=== PATIENT | male | born 1970 | race Caucasian/White ===

== ENCOUNTER 2018-12-10 02:14 | Inpatient (IN) | payer OTHER, MEDICAID ==
[~2018-12-10] VITALS: Ht 172.7 cm; Wt 79.3 kg
[2018-12-10] MEDS ORDERED: SODIUM CHLORIDE 0.9% 1,000 ML IV ONE (03:47)
[2018-12-10 04:05] LABS: BASOPHILS % 1.2 % (0.0-2.0); EOSINOPHILS % 2.9 % (0.0-5.0); HEMATOCRIT. 42.9 % (42.0-52.0); HEMOGLOBIN. 14.8 g/dL (14.0-18.0); LYMPHOCYTES % 28.2 % (20.0-50.0); MEAN CORPUSCULAR HEMOGLOBIN 30.2 pg (28.0-32.0); MEAN CORPUSCULAR VOLUME 87.6 fL (80.0-94.0); MONOCYTES % 10.4 % (2.0-8.0); NEUTROPHILS % 57.3 % (40.0-76.0); PLATELET 256 x1000/uL (130-400); RED CELL DISTRIBUTION WIDTH 13.6 % (11.6-14.6)
[2018-12-10 04:07] LABS: CHLORIDE 108 mEq/L (98-107)
[2018-12-10 04:11] LABS: ETHANOL BLOOD < 10 mg/dL
[2018-12-10] MEDS ORDERED: MORPHINE SULFATE 4 MG/ML CPJ (NOT FOR IM USE) IV ONE (04:45)
[2018-12-10] MEDS: SODIUM CHLORIDE 0.9% 1,000 ML IV SCH ×2 (07:59→21:58)
[2018-12-10] MEDS ORDERED: NITROGLYCERIN 0.4MG TABLET SL SL PRN (08:00)
[2018-12-10] MEDS ORDERED: ZOLPIDEM TARTRATE 5MG TABLET PO PRN (08:00)
[2018-12-10] MEDS ORDERED: IPRATROPIUM/ALBUTEROL 0.5-3(2.5)MG/3ML NEB NEB PRN (08:00)
[2018-12-10] MEDS ORDERED: KETOROLAC 15MG/ML VIAL IV PRN (08:00)
[2018-12-10] MEDS ORDERED: ACETAMINOPHEN 325MG TABLET PO PRN (08:00)
[2018-12-10] MEDS ORDERED: GUAIFENESIN 200MG/10ML SUGAR FREE UDC PO PRN (08:00)
[2018-12-10] MEDS ORDERED: CLONIDINE 0.1MG TABLET PO PRN (08:00)
[2018-12-10] MEDS ORDERED: ONDANSETRON HCL 4MG/2ML INJ IV PRN (08:00)
[2018-12-10] MEDS ORDERED: DOCUSATE SODIUM 100MG CAPSULE PO PRN (08:00)
[2018-12-10 09:00] VITALS: BP 124/87
[2018-12-10 09:14] LABS: FOLIC ACID (FOLATE) SERUM 19.8 ng/mL (>5.38)
[2018-12-10] MEDS ORDERED: IMIT50 MT (11:29)
[2018-12-10] MEDS ORDERED: SUMATRIPTAN SUCCINATE 25MG TABLET PO ONE (11:30)
[2018-12-10] MEDS: ASPIRIN 81MG EC TABLET PO SCH (11:45)
[2018-12-10] MEDS: FAMOTIDINE 20MG TABLET PO SCH ×2 (11:46→21:56)
[2018-12-10] MEDS: ENOXAPARIN 40MG/0.4ML SYR SUBCUT SCH (11:47)
[2018-12-10 12:00] VITALS: BP 115/50
[2018-12-10] MEDS ORDERED: SUMATRIPTAN SUCCINATE 25MG TABLET PO PRN ×2 (12:00→14:30)
[2018-12-10] MEDS ORDERED: IMIPRAMINE HCL 25MG TABLET PO PRN (13:15)
[2018-12-10 16:02] LABS: CREATINE KINASE 238 IU/L (39-308)
[2018-12-10 16:04] LABS: CREATINE KINASE MB FRACTION 3.6 ng/mL (0.5-3.6)
[2018-12-10 20:00] VITALS: BP 117/82
[2018-12-11] VITALS: BP 106/73
[2018-12-11 00:51] LABS: CREATINE KINASE 230 IU/L (39-308)
[2018-12-11 01:02] LABS: CREATINE KINASE MB FRACTION 3.1 ng/mL (0.5-3.6)
[2018-12-11 04:00] VITALS: BP 112/70
[2018-12-11 08:00] VITALS: BP 121/80
[2018-12-11] MEDS: ASPIRIN 81MG EC TABLET PO SCH (09:18)
[2018-12-11] MEDS: ENOXAPARIN 40MG/0.4ML SYR SUBCUT SCH (09:18)
[2018-12-11] MEDS: FAMOTIDINE 20MG TABLET PO SCH (09:18)
[2018-12-11 10:36] VITALS: BP 121/80
== END 2018-12-11 11:00 | disposition home or self-care (01) | DRG 204 ==
LOC: ER 02:14 → EDBEDREQ 03:58 → 7WST 04:41 → EDBEDREQ 04:44 → EDBEDREQTM 04:44 → ENRESERV 07:36
PROVIDERS: ADMIT Internal Medicine; ATTEND Internal Medicine
DX: R55 Syncope and collapse (principal); F17.210 Nicotine dependence, cigarettes, uncomplicated; G43.909 Migraine, unspecified, not intractable, without status migrainosus; Z91.013 Allergy to seafood
CPT/HCPCS: 36415; 71045; 80061; 80320; 82550; 82553; 82607; 82746; 83036; 83540; 83550; 83605; 84443; 84484; 93005; 93306; 93880; 96361; 96374; 99285; J1650; J2270; J7030; J7040; G0480